=== PATIENT | female | born 1970 | race Caucasian/White ===

== ENCOUNTER → 2019-10-28 | Outpatient (CLI) | payer OTHER ==
--- NOTE | 2019-10-28 13:15 | RAD ---
VENOUS LOWER EXTREMITY RIGHT 10/28/2019 12:30 PM Clinical Information: Right calf pain with recent ankle surgery August 2019. Comparison: None. Technique: Multiple grayscale, color Doppler, and spectral Doppler sonographic images of the lower extremity venous structures were obtained. Findings: Right common femoral vein is patent. Mid to distal right superficial femoral vein not well visualized. Proximal superficial femoral vein is patent. Nonvisualized portions of the superficial femoral vein could be thrombosed given thrombus identified within the popliteal vein. Nonocclusive thrombus is identified in the right posterior tibial and peroneal veins. Impression: 1. Deep venous thrombosis involving the right lower extremity, as detailed above. FOR INTERNAL CODING PURPOSES Critical result: Findings discussed with Santiago at the office of Dr. SUÁREZ at 10/28/2019 1:11 PM. RESULT CODE: (C) Electronically signed by: Jacki Jordan MD (10/28/2019 1:12 PM) [id number]
== END | disposition home or self-care (01) ==
LOC: RAD 12:13
PROVIDERS: ATTEND Orthopaedic Surgery
DX: I82.441 Acute embolism and thrombosis of right tibial vein (principal); I82.451 Acute embolism and thrombosis of right peroneal vein; I82.431 Acute embolism and thrombosis of right popliteal vein
CPT/HCPCS: 93971